=== PATIENT | female | born 1990 | race Caucasian/White ===

== ENCOUNTER 2019-11-23 17:04 | Emergency (ER) | payer OTHER, SELFPAY ==
--- NOTE | ~2019-11-23 | XR_ITS ---
EXAMINATION: XR wrist LT min 3V EXAM DATE: 11/23/2019 17:31 INDICATION: No known recent injury provided at this time. Pain of the left wrist, not at the anterio r distal radius. TECHNIQUE: Left wrist frontal, frontal with ulnar deviation, oblique and lateral projections obtained and reviewed. There is no prior study for comparison. FINDINGS: Left wrist scapholunate joint space is maintained. There are no acute fractures or dislocat ions identified. There is no subcutaneous gas. The soft tissue is unremarkable. Please note that soft tissue nodules or ganglion cysts are typically radiographically occult. There are no radiopaque foreign bodies. IMPRESSION: 1. Unremarkable left wrist exam. Reviewed, dictated and finalized at location A.
[2019-11-23 17:11] VITALS: BP 123/66; PULSE 70; RESP 20; TEMP 37.7; O2SAT 99
--- NOTE | 2019-11-23 17:19 | ED.GENADULT ---
HPI - General Adult General Chief complaint: Extremity Injury, Upper Stated complaint: left wrist injury Time Seen by Provider: 11/23/19 17:16 Source: patient and RN notes reviewed Mode of arrival: ambulatory Limitations: no limitations History of Present Illness HPI narrative: 29-year-old female presents with concern for left wrist pain beneath the thumb on the palmar aspect. Reports she feels a bump there. Denies any known recent injury or trauma. 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 Reports several years ago she fell and injured her wrist, never had imaging in the injury healed. She reports pain with movement of her thumb and flexion extension of her wrist. 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 Reports she is been taking Tylenol, she has an allergy to NSAIDs. MD complaint: Wrist pain Related Data Allergies Allergy/AdvReac Type Severity Reaction Status Date / Time NSAIDS (Non-Steroidal Allergy Severe ANAPHALAXIS Verified 11/23/19 17:21 Anti-Inflamma Review of Systems Review of Systems: Narrative: CONSTITUTIONAL: Denies malaise, chills, sweats, or fever. SKIN: Denies redness, bruising, reports swelling MUSCULOSKELETAL: Reports left wrist pain NEUROLOGIC: Denies numbness, weakness. All systems reviewed & are unremarkable except as noted in HPI and below PMFSH Comments At time of signature, agree with nursing past medical, surgical, social and family history. There is no relevant family history pertinent to the presenting complaint Exam Narrative: Exam Narrative: GENERAL: Well-appearing, well-nourished, and in no acute distress. HEAD: Normocephalic, atraumatic. EYES: PERRLA, conjunctivae clear NECK: Supple. CHEST: Speaks in full sentences. No respiratory distress. HEART: Regular rate and rhythm. Normal and equal peripheral pulses. EXTREMITIES: Left wrist, digits of left hand have normal strength and sensation, normal range of motion. 5/5 strength with digit flexion and extension. Normal sensation with sensitivity to light touch and pain. No open wounds, no skin tenting, no devitalized tissue or atrophy, no trophic changes, no ecchymosis, alignment normal, no point tenderness, nearby joints and structures intact. Distal pulses palpable and equal bilaterally, skin warm, dry, pink. Capillary refill less than 3 seconds. Palpable, tender nodule noted on the palmar aspect of the wrist beneath the first digit SKIN: Warm, dry, no rash. NEURO: Alert and oriented x3. PSYCH: Normal mood and affect Course Course Emergency Course: Patient is aware of diagnosis, understands and agrees to treatment plan. Anticipatory guidance given. Patient agrees to follow-up as directed and is aware of reasons to seek care at the emergency department. Portions of this record may have been created with voice recognition software Vital Signs Vital signs: Vital Signs Temperature 99.8 F H 11/23/19 17:11 Pulse Rate 70 11/23/19 17:11 Respiratory Rate 20 11/23/19 17:11 Blood Pressure 123/66 11/23/19 17:11 Pulse Oximetry 99 11/23/19 17:11 Temperature 99.8 F H 11/23/19 17:11 Pulse Rate 70 11/23/19 17:11 Respiratory Rate 11/23/19 17:11 Blood Pressure 123/66 11/23/19 17:11 Pulse Oximetry 99 11/23/19 17:11 Reviewed. Medical Decision Making MDM Narrative Medical decision making narrative: Patients pain is consistent with musculoskeletal etiology. No signs of neurological or vascular compromise on exam. Compartments and tissues are soft without signs of compartment syndrome. Pain is felt appropriate for further evaluation on an outpatient basis. Vital Signs Vital Signs: Vital Signs Temperature 99.8 F H 11/23/19 17:11 Pulse Rate 70 11/23/19 17:11 Respiratory Rate 11/23/19 17:11 Blood Pressure 123/66 11/23/19 17:11 Pulse Oximetry 99 11/23/19 17:11 Temperature 99.8 F H 11/23/19 17:11 Pulse Rate 70 11/23/19 17:11 Respiratory Rate 11/23/19 17:11 Blood Pressure
--- NOTE | 2019-11-23 18:13 | PC.NURSE ---
PT TAKEN TO RADIOLOGY IN WHEELCHAIR
== END 2019-11-23 18:02 | disposition home or self-care (01) ==
PROVIDERS: Emergency Provider Nurse Practitioner
DX: M25.532 Pain in left wrist (principal); J45.909 Unspecified asthma, uncomplicated
CPT/HCPCS: 73110; 99213; G0463

== ENCOUNTER 2021-10-11 11:24 | Emergency (ER) | payer OTHER, SELFPAY ==
[2021-10-11 11:32] VITALS: BP 126/86; PULSE 69; RESP 20; TEMP 36.6; O2SAT 99
--- NOTE | 2021-10-11 12:32 | ED.FEMALEGU ---
HPI - Female Genitourinary General Chief complaint: Urogenital-Female Stated complaint: std test Time Seen by Provider: 10/11/21 12:30 Source: patient, RN notes reviewed and old records reviewed Mode of arrival: ambulatory Limitations: no limitations History of Present Illness HPI Narrative: 31-year-old female who presents to [facility] care with complaints of vaginal itching and burning for the past 2 1/2 weeks. She reports that she had vaginal burning and itching prior to starting her period and used 1 day treatment of Monistat and then had period for 2 weeks and symptoms continue. She reports that she had unprotected sex about 3 weeks ago with new sexual partner and is concerned for possible exposure of STD's., reports has had Chlamydia in the past. Information for [facility] STD clinic given to patient by nursing staff and while waiting to be seen patient got appointment for exam at 2 pm today so she declined any further treatment for STD at our clinic. MD elicited complaint: genital itching Pertinent past history: tubal ligation Related Data Allergies Allergy/AdvReac Type Severity Reaction Status Date / Time ibuprofen [From Advil] Allergy Severe Anaphylaxis Verified 10/11/21 11:44 naproxen [From Aleve] Allergy Severe Anaphylaxis Verified 10/11/21 11:44 Review of Systems Review of Systems: CONSTITUTIONAL: Denies fever, chills, or sweats. EYES: Denies visual changes, redness, or discharge. ENT: Denies rhinorrhea, congestion, sore throat, or otalgia. CARDIOVASCULAR: Denies chest pain, palpitations, or edema. RESPIRATORY: Denies cough or dyspnea. GASTROINTESTINAL: Denies abdominal pain, nausea, vomiting, or diarrhea. GENITOURINARY: Denies dysuria or hematuria, reports genital itching and burning SKIN: Denies rash or itching. MUSCULOSKELETAL: Denies back pain, joint pain, or myalgia. NEUROLOGIC: Denies headache, numbness, or weakness. PSYCHIATRIC: Denies anxiety or depression. All systems reviewed & are unremarkable except as noted in HPI and below PMFSH Past Medical History Medical History (Updated 10/12/21 @ 10:22 by Carolin Madrid NP) Anxiety and depression Carpal tunnel syndrome, bilateral Chlamydia Surgical History Surgical History (Updated 10/12/21 @ 10:22 by Carolin Madrid NP) Tubal ligation status Social History Social History (Updated 10/12/21 @ 10:23 by Carolin Madrid NP) Smoking status: Never smoker Alcohol intake: unknown Substance use: unknown Living arrangements: with family Gender identity (if verbalized by the patient): Female Comments At time of signature, agree with nursing past medical, surgical, social and family history. There is no relevant family history pertinent to the presenting complaint Exam Narrative: GENERAL: Well-appearing, well-nourished, and in no acute distress. HEAD: Normocephalic, atraumatic. EYES: PERRLA and EOMI. ENT: Nares clear, no rhinorrhea or epistaxis. Mucous membranes moist.TM's normal with good light reflex, throat pink with no tonsil enlargement NECK: Supple.no lymphadenopathy CHEST: Clear to auscultation. No respiratory distress.SAO2 99% on room air HEART: Regular rate and rhythm. No murmur heard. Normal peripheral pulses. ABDOMEN: Soft, nontender, nondistended, normal active bowel sounds.Denies any abdominal pain, no CVA tenderness noted on exam, reports genital itching and burning EXTREMITIES: Normal range of motion. No edema. SKIN: Warm, dry, no rash. NEURO: No focal deficits. Alert and oriented x3. Course Course Level of Care: Express Care Visit Vital Signs Vital signs: Vital Signs Temperature 36.6 C 10/11/21 11:32 Pulse Rate 69 10/11/21 11:32 Respiratory Rate 10/11/21 11:32 Blood Pressure 126/86 10/11/21 11:32 Pulse Oximetry 99 10/11/21 11:32 Temperature 36.6 C 10/11/21 11:32 Pulse Rate 69 10/11/21 11:32 Respiratory Rate 20 10/11/21 11:32 Blood Pressure 126/86 10/11/21 11:32 Pulse Oximetry 99 0
== END 2021-10-11 12:48 | disposition home or self-care (01) ==
PROVIDERS: Emergency Provider Registered Nurse
DX: B37.3 Candidiasis of vulva and vagina (principal)
CPT/HCPCS: 81003; 99214; G0463

== ENCOUNTER 2024-02-25 19:22 | Emergency (ER) | payer OTHER, SELFPAY ==
[2024-02-25 19:32] VITALS: BP 119/83; PULSE 93; RESP 20; TEMP 37.2; O2SAT 99
--- NOTE | 2024-02-25 19:56 | ED.URI ---
HPI - URI/Sore Throat General Chief Complaint: Upper Respiratory Infection Stated Complaint: head cold/throat Time Seen by Provider: 02/25/24 19:56 Source: patient Mode of arrival: ambulatory Limitations: no limitations History of Present Illness HPI Narrative: 33-year-old female presents with complaint of nasal congestion, postnasal drainage, coughing for the past 2 weeks. Patient reports low-grade fever today. Hoarse voice. Has been taking [id number] DayQuil NyQuil cold and Sinus. History of asthma. Currently does not have a primary care physician. Reports albuterol inhaler is . No shortness of breath at this time. All systems reviewed and negative except as noted above. Related Data Allergies Allergy/AdvReac Type Severity Reaction Status Date / Time ibuprofen [From Advil] Allergy Severe Anaphylaxis Verified 10/11/21 11:44 naproxen [From Aleve] Allergy Severe Anaphylaxis Verified 10/11/21 11:44 Review of Systems Review of Systems: CONSTITUTIONAL: Reports fever, chills, or sweats. EYES: Denies visual changes, redness, or discharge. ENT: reports rhinorrhea, congestion, postnasal drainage,sore throat. Denies otalgia. CARDIOVASCULAR: Denies chest pain, palpitations, or edema. RESPIRATORY: reports cough. Denies dyspnea. GASTROINTESTINAL: Denies abdominal pain, nausea, vomiting, or diarrhea. GENITOURINARY: Denies dysuria or hematuria. SKIN: Denies rash or itching. MUSCULOSKELETAL: Denies back pain, joint pain, or myalgia. NEUROLOGIC: Denies headache, numbness, or weakness. PSYCHIATRIC: Denies anxiety or depression. All other systems reviewed are negative, except as documented in HPI. ON LICENSE OF [facility] Past Medical History Medical History (Updated 02/25/24 @ 20:04 by Clare Nicholas NP) Anxiety and depression Carpal tunnel syndrome, bilateral Chlamydia Surgical History Surgical History (Updated 10/12/21 @ 10:22 by Carolin Madrid NP) Tubal ligation status Social History Social History (Updated 10/12/21 @ 10:23 by Carolin Madrid NP) Smoking status: Never smoker Alcohol intake: unknown Substance use: unknown Living arrangements: with family Gender identity (if verbalized by the patient): Female Comments At time of signature, agree with nursing past medical, surgical, social and family history. There is no relevant family history pertinent to the presenting complaint. Exam Narrative: GENERAL: This is a well-nourished, well-developed patient, Ill-appearing but no acute distress HEAD: normocephalic, atraumatic. EYES: PERRL. Sclera clear/white. Vision is grossly intact. EARS: External ears normal, auditory canals clear and without drainage, TMs normal without perforation. Hearing grossly intact. NOSE: External nose normal with moderate congestion, purulent nasal drainage, bilateral maxillary sinus tenderness on palpation. THROAT: Mucous membranes moist, Erythema with postnasal drainage, hoarse voice. NECK: Neck supple, non-tender without lymphadenopathy, masses or thyromegaly. CARDIOVASCULAR: Regular rate and rhythm without murmurs, gallops, or rubs. RESPIRATORY: Clear to auscultation. Breath sounds equal bilaterally. No wheezes, rales, or rhonchi. SKIN: warm, Dry, intact with no suspicious lesions or rash, good texture and turgor. NEURO: awake, alert, and oriented to person, place and time. There were no obvious focal neurologic abnormalities. EXTREMITIES: No joint tenderness, effusion, or edema noted. Course Course Level of Care: Express Care Visit Vital Signs Vital signs: Vital Signs Temperature 37.2 C 02/25/24 19:32 Pulse Rate 93 02/25/24 19:32 Respiratory Rate 20 02/25/24 19:32 Blood Pressure 119/83 02/25/24 19:32 Pulse Oximetry 99 02/25/24 19:32 Oxygen Delivery Room Air 02/25/24 19:32 Temperature 37.2 C 02/25/24 19:32 Pulse Rate 93 02/25/24 19:32 Respiratory Rate 20 02/25/24 19:32 Blood Pressure 119/83 02/25/24
== END 2024-02-25 20:07 | disposition home or self-care (01) ==
PROVIDERS: Emergency Provider Nurse Practitioner Family
DX: J01.90 Acute sinusitis, unspecified (principal); J45.909 Unspecified asthma, uncomplicated
CPT/HCPCS: 99213; G0463

== ENCOUNTER 2024-06-02 10:41 | Emergency (ER) | payer OTHER, SELFPAY ==
[2024-06-02 10:53] VITALS: BP 115/72; PULSE 102; RESP 16; TEMP 36.9; O2SAT 99
--- NOTE | 2024-06-02 10:57 | ED.URI ---
HPI - URI/Sore Throat General Chief Complaint: Upper Respiratory Infection Stated Complaint: throat/ear Time Seen by Provider: 06/02/24 10:57 Source: patient and RN notes reviewed Mode of arrival: ambulatory Limitations: no limitations History of Present Illness HPI Narrative: 34-year-old female presents with concern for sore throat, ear pain on the right, cough. She reports she had tactile fever yesterday. MD elicited complaint: cough and sore throat Related Data Allergies Allergy/AdvReac Type Severity Reaction Status Date / Time ibuprofen (From Advil) Allergy Severe Anaphylaxis Verified 10/11/21 11:44 naproxen (From Aleve) Allergy Severe Anaphylaxis Verified 10/11/21 11:44 Review of Systems Review of Systems: CONSTITUTIONAL: Denies malaise, chills, sweats. Reports fever. EYES: Denies visual changes, redness, or discharge. ENT: Reports rhinorrhea, congestion, otalgia and sore throat. CARDIOVASCULAR: Denies chest pain, palpitations, or edema. RESPIRATORY: Reports cough. Denies dyspnea. GASTROINTESTINAL: Denies abdominal pain, nausea, vomiting, diarrhea SKIN: Denies rash or itching. MUSCULOSKELETAL: Denies myalgia. NEUROLOGIC: Denies headache. All systems reviewed & are unremarkable except as noted in HPI and below PMFSH Past Medical History Medical History (Updated 06/02/24 @ 11:02 by Traci Hurd NP) Chlamydia Carpal tunnel syndrome, bilateral Anxiety and depression Surgical History Surgical History (Updated 10/12/21 @ 10:22 by Carolin Madrid NP) Tubal ligation status Social History Social History (Updated 10/12/21 @ 10:23 by Carolin Madrid NP) Smoking status: Never smoker Alcohol intake: unknown Substance use: unknown Living arrangements: with family Gender identity (if verbalized by the patient): Female Comments At time of signature, agree with nursing past medical, surgical, social and family history. There is no relevant family history pertinent to the presenting complaint Exam Narrative: GENERAL: Well-appearing, well-nourished, and in no acute distress. HEAD: Normocephalic EYES: PERRLA, conjunctivae clear ENT: Nares clear. Mucous membranes moist. TM pearly [place] with dull light reflex on the left, erythematous on the right; no tragal tenderness. Oropharynx not erythematous without lesions. Tonsils not enlarged and without exudate, no drooling, no hoarseness, no trismus, uvula midline. NECK: Supple. No lymphadenopathy CHEST: Clear to auscultation, breath sounds equal. No wheezing, rhonchi, rales, or stridor. No respiratory distress, speaks in full sentences. Cough noted HEART: Regular rate and rhythm. No murmur heard. SKIN: Warm, dry, no rash. NEURO: Alert and oriented x3. PSYCH: Normal mood and affect Course Course Emergency Course: Patient is aware of diagnosis, understands and agrees to treatment plan. Anticipatory guidance given. Patient agrees to follow-up as directed and is aware of reasons to seek care at the emergency department. Portions of this record may have been created with voice recognition software Level of Care: Express Care Visit Vital Signs Vital signs: Vital Signs Temperature 98.5 F 06/02/24 10:53 Pulse Rate 102 H 06/02/24 10:53 Respiratory Rate 16 06/02/24 10:53 Blood Pressure 115/72 06/02/24 10:53 Pulse Oximetry 99 06/02/24 10:53 Oxygen Delivery Room Air 06/02/24 10:53 Temperature 98.5 F 06/02/24 10:53 Pulse Rate 102 H 06/02/24 10:53 Respiratory Rate 16 06/02/24 10:53 Blood Pressure 115/72 06/02/24 10:53 Pulse Oximetry 99 06/02/24 10:53 Oxygen Delivery Room Air 06/02/24 10:53 Reviewed. MDM - URI/Sore Throat MDM Narrative Medical decision making narrative: Differential diagnosis considered: Woodward virus, strep pharyngitis, allergic rhinitis, upper respiratory tract infection, sinusitis, rhinosinusitis, nasopharyngitis. viral pharyngitis, otitis media, otitis externa, pneumonia, bronchitis, viral cough syndrome, viral syndrome, and influenza. Exam findings show no acute concerns or changes; patient is non-toxic appearing and is in no distress. Patient is appropriate for outpatient treatment and follow-up. Lab Data Attestation: I reviewed the patient's lab results. Critical Care Time Critical Care Time Critical Care Time: No Discharge Plan Discharge Clinical Impression: Otitis media, Cough Patient Disposition: Home, Self-Care Condition: Stable Instructions: Antibiotic Form, Ear Infection (ED) Additional Instructions: Take antibiotics as directed. Recommend antihistamine such as Benadryl at night time and Zyrtec or Sandie during the day until symptoms improve Flonase nasal spray, 2 sprays in each nostril once daily until symptoms improve Also, recommend symptomatic treatment includes: rest, fluids, and increase humidity of the air at home. Recommend Acetaminophen as directed on the bottle to reduce fever, pain Please schedule a follow-up visit with your personal physician for further evaluation and treatment within 3-5days. If your symptoms persist, change or worsen significantly before you can contact your personal physician then please, without delay, go to the emergency department for further evaluation. Patient Language: Togolese Prescriptions: New amoxicillin 875 mg tablet 875 mg PO Q12H 10 Days Qty: 20 0RF dextromethorphan-guaifenesin [Mucinex DM] 60-1,200 mg tablet extended release 12 hr 1 tablet PO Q12H Qty: 12 0RF methylprednisolone [Medrol (Alex)] 4 mg tablets,dose pack See Rx Instructions .ROUTE .COMPLEX Qty: 21 0RF Rx Instructions: orally per package directions No Action albuterol sulfate 90 mcg/actuation HFA aerosol inhaler 2 puff inhalation Q4-6H PRN (Reason: shortness of breath or wheezing) Qty: 8.5 0RF Follow-up/Referrals: PHYSICIAN,WRAPPER LEAF INSPECTOR [Primary Care Provider] - Time of Disposition: 11:03
[2024-06-02 11:04] LABS: EDSTREPNEGPOS1 Negative (Negative)
== END 2024-06-02 11:12 | disposition home or self-care (01) ==
PROVIDERS: Emergency Provider Nurse Practitioner
DX: H66.91 Otitis media, unspecified, right ear (principal)
CPT/HCPCS: 87081; 87880; 99213; G0463

== ENCOUNTER 2024-12-21 16:52 | Emergency (ER) | payer OTHER, SELFPAY ==
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
--- OUTSIDE RECORDS SUMMARY | 2024-12-21 16:54 | XMS_ITS | Referral Summary ---
Author Organization [facility] Address [address] [place] [address] Care Team Providers Care Burr Bench Hand Name Role Phone No, Physician Primary Care Provider [phone] Andrzej Moe MD Unavailable + [phone] Allergies Active Allergy Reactions Criticality Noted Date Comments Ibuprofen Anaphylaxis High Naproxen Anaphylaxis High Nsaids (Non-Steroidal Anti-I nflammatory Drug) Anaphylaxis High 08/04/2023 Medications No known medications Active Problems Problem Noted Date Diagnosed Date Low grade squamous intraepit helial lesion on cytologic smear of cervix (LGSIL) 07/09/2023 Social History Tobacco Use Types Packs/Day Years Used Date Smoking Tobacco: Never Smokeless Tobacco: Never Tobacco Cessation:Counseling Given: Not Answered Alcohol Use Standard Drinks/Week Comments No 0 (1 standard drink = 0.6 oz pur e alcohol) AUDIT-C Answer Date Recorded Frequency of Alcohol Consumption Not on file 08/04/2023 Q2: How many drinks containi ng alcohol do you have on a typical day when you are drinking? Patient does not drink Frequency of Binge Drinking Not on file 09/2023 Personal Safety Answer Date Recorded Have you ever been in or are you currently in a harmful physical or emotional relationship or is someone making you feel afraid or unsafe? 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[employer] Gender Identity Not on file Sexual Orientation Not on file Last Filed Vital Signs Vital Sign Reading Time Taken Comments Blood Pressure 129/83 08/11/2023 3:10 PM CDT Pulse 64 08/11/2023 3:10 PM CDT Temperature 36.7 C (98 F) 08/11/2023 2:40 PM CDT Respiratory Rate 20 08/11/2023 3:10 PM CDT Oxygen Saturation 99% 08/11/2023 3:10 PM CDT Inhaled Oxygen Concentration - - Weight 79 kg (174 lb 2.6 oz) 08/11/2023 12:17 PM CDT Height 152.4 cm (5') 08/11/2023 12:17 PM CDT Body Mass Index 34.01 08/11/2023 12:17 PM CDT Plan of Treatment Not on file Insurance [facility] Care Teams Burr Bench Hand Relationship Specialty Start Date End Date No, Physician PCP - General 07/29/23 Andrzej Moe MD [address] [address] [address] BEDOYA B [facility] [address] [place] [address] Consulting Physician Obstetrics and Gynecology 08/11/23
--- OUTSIDE RECORDS SUMMARY | 2024-12-21 16:54 | XMS_ITS | Clinical Summary ---
Author Organization [facility] Address [address] [place] [address] Phone Care Team Providers Care Ampoule Examiner Name Role Phone Provider, None Primary Care Provider Unavailabl e Allergies Active Allergy Reactions Criticality Noted Date Comments Ibuprofen Anaphylaxis 08/14/2022 Medications acetaminophen-c odeine (TYLENOL #3) 300-30 MG TabletIndicatio ns:Dysmenorrhea Take 1 Tablet by mouth every 6 hours as needed for Moderate or more severe pain. 10 Tablet 08/14/2022 Active Social History Tobacco Use Types Packs/Day Years Used Date Smoking Tobacco: Never Smokeless Tobacco: Never Tobacco Cessation:Counseling Given: Not Answered Alcohol Use Standard Drinks/Week Comments Never 0 (1 standard drink = 0.6 oz pur e alcohol) Comments No Sex and Gender Information Value Date Recorded Sex Assigned at Not on file Legal Sex Female 10:02 PM CDT Gender Identity Not on file Sexual Orientation Not on file Last Filed Vital Signs Vital Sign Reading Time Taken Comments Blood Pressure 136/74 08/14/2022 5:49 PM CDT Pulse 77 08/14/2022 5:46 PM CDT Temperature 36.8 C (98.2 F) 08/14/2022 5:46 PM CDT Respiratory Rate 18 08/14/2022 5:46 PM CDT Oxygen Saturation 96% 08/14/2022 5:46 PM CDT Inhaled Oxygen Concentration - - Weight 82.1 kg (181 lb) 08/14/2022 5:46 PM CDT Height 149.9 cm (4' 11) 08/14/2022 5:46 PM CDT Body Mass Index 36.56 08/14/2022 5:46 PM CDT Plan of Treatment Health Maintenance Due Date Last Done Comments Hepatitis C Virus (HCV) Screening 1988 TdaP Immunization 1988 Human Papillomavirus (HPV) Immunization (1 - 3-dose series) 2003 Hepatitis B Immunization (1 of 3 - 19+ 3-dose series) 2007 Pap Smear 2009 Cervical Cancer Screening (CCS) 2018 HPV/Cotest 2018 SARS-COV-2 Immunization (1 - 2023- season) 2024 Influenza Immunization (#1) 2025 Respiratory Syncytial Virus (RSV) Immunization (Adult) (1 - 1-dose 75+ series) 2063 Meningococcal Immunization (ACWY) Aged Out No longer eligible based on patient's age to complete this topic Pneumococcal Immunization Combined Aged Out No longer eligible based on patient's age to complete this topic Rotavirus Immunization Aged Out No lo nger eligible based on patient's age to complete this topic Insurance MEDICAID [employer] Care Teams Ampoule Examiner Relationship Specialty Start Date End Date Provider, None [place] PCP - General 08/14/22
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
--- OUTSIDE RECORDS SUMMARY | 2024-12-21 16:54 | XMS_ITS | Clinical Summary ---
Author Organization [facility] Address [address] [place] [address] Care Team Providers Care Site Identification Specialist Name Role Phone No, Physician Primary Care Provider [phone] Andrzej Moe MD Unavailable + [phone] Allergies Active Allergy Reactions Criticality Noted Date Comments Ibuprofen Anaphylaxis High Naproxen Anaphylaxis High Nsaids (Non-Steroidal Anti-I nflammatory Drug) Anaphylaxis High 08/04/2023 Medications No known medications Active Problems Problem Noted Date Diagnosed Date Low grade squamous intraepit helial lesion on cytologic smear of cervix (LGSIL) 07/09/2023 Surgical History Surgery Date Site/Laterality Comments TUBAL LIGATION Medical History Medical History Date Comments Motion sickness Asthma Social History Tobacco Use Types Packs/Day Years [...] on file Legal Sex Female 7:42 PM [employer] WORK[employer] Gender Identity Not on file Sexual Orientation Not on file Obstetrics History Last Filed Vital Signs Vital Sign Reading [...] 08/11/2023 12:17 PM CDT Plan of Treatment Health Maintenance Due Date Last Done Comments Cervical Cancer Screening 1988 Depression Screening 1988 Hepatitis C Screening 1988 DTaP/Tdap/Td Vaccine (1 - Tdap) 1999 Varicella Vaccines (1 of 2 - 13+ 2-dose series) 2001 Hepatitis B Screening 2006 Regular Well Visit/Exam 18-64 2006 Influenza Vaccine (Season Ended) 2025 HPV Vaccines Aged Out No longer eligi ble based on patient's age to complete this topic Pneumococcal vaccine <65 Aged Out No longer eligible based on patient's age to complete this topic Insurance [facility] Care Teams Site Identification Specialist Relationship Specialty Start Date End Date No, Physician PCP - General 07/29/23 Andrzej Moe MD [address] [place] [address] [address] [facility] [address] [place] [address] Consulting Physician Obstetrics and Gynecology 08/11/23
[2024-12-21 16:58] VITALS: BP 121/77; PULSE 101; RESP 16; TEMP 36.8; O2SAT 97
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
== END 2024-12-21 18:18 | disposition home or self-care (01) ==
PROVIDERS: Emergency Provider Nurse Practitioner Family
DX: H66.001 Acute suppurative otitis media without spontaneous rupture of ear drum, right ear (principal); M79.645 Pain in left finger(s)
CPT/HCPCS: 73140; 99213; G0463